=== PATIENT | female | born 1970 | race Caucasian/White ===

== ENCOUNTER → 2016-11-15 | Outpatient (CLI) | payer BC, MEDICAID, OTHER ==
[2016-11-15 21:06] LABS: MEAN CORPUSCULAR HEMOGLOBIN 30.5 pg (27.0-33.0); MEAN CORPUSCULAR HGB CONC 33.8 g/dl (32.0-36.5); MEAN CORPUSCULAR VOLUME 90.3 fl (80.0-96.0); WHITE BLOOD COUNT 6.9 K/mm3 (4.0-10.0)
[2016-11-15 21:07] LABS: BASO % 0.5 % (0.0-1.0); EOS # 0.1 K/mm3 (0.0-0.50); EOS % 1.8 % (0.0-3.0); LARGE UNSTAINED CELL # 0.2 K/mm3 (0.0-0.4); LARGE UNSTAINED CELL % 2.2 % (0.0-4.0); LYMPH # 1.7 K/mm3 (1.5-4.5); LYMPH % 24.1 % (24.0-44.0); MONO # 0.3 K/mm3 (0.0-0.8); MONO % 4.7 % (0.0-5.0); NEUTROPHILS # 4.6 K/mm3 (1.8-7.7); NEUTROPHILS % 66.6 % (36.0-66.0); PLATELET COUNT, AUTOMATED 304 k/mm3 (150-450); RED CELL DISTRIBUTION WIDTH 11.5 % (11.5-14.5)
[2016-11-15 21:12] LABS: ALBUMIN 3.8 GM/DL (3.2-5.2); ALBUMIN/GLOBULIN RATIO 1.41 (1.00-1.93); ALKALINE PHOSPHATASE 131 U/L (45-117); ALT/SGPT 50 U/L (12-78); ANION GAP 5 MEQ/L (8-16); AST/SGOT 29 U/L (15-37); BILIRUBIN,TOTAL 0.8 MG/DL (0.2-1.0); BLOOD UREA NITROGEN 12 MG/DL (7-18); CALCIUM LEVEL 8.9 MG/DL (8.5-10.1); CARBON DIOXIDE LEVEL 31 MEQ/L (21-32); CHLORIDE LEVEL 107 MEQ/L (98-107); FERRITIN 156 NG/ML (8-252); GLOMERULAR FILTRATION RATE > 60.0 (>58); GLUCOSE, FASTING 89 MG/DL (70-105); PERCENT SATURATION 40.9 % (13.2-37.4); PHOSPHORUS LEVEL 3.7 MG/DL (2.5-4.9); POTASSIUM SERUM 4.1 MEQ/L (3.5-5.1); SODIUM LEVEL 143 MEQ/L (136-145); TOTAL IRON BINDING CAPACITY 298 UG/DL (250-450); TOTAL PROTEIN 6.5 GM/DL (6.4-8.2)
[2016-11-15 21:19] LABS: VITAMIN B12 LEVEL 1471 PG/ML (247-911)
[2016-11-17 11:12] LABS: PRETREATED FOLATE FOR RBCFOL 9.6 NG/ML
== END ==
LOC: M LRY 16:22
PROVIDERS: ATTEND Surgery
DX: K91.2 Postsurgical malabsorption, not elsewhere classified (principal); Z98.84 Bariatric surgery status; E55.9 Vitamin D deficiency, unspecified

== ENCOUNTER → 2017-09-11 | Outpatient (CLI) | payer MEDICAID | LOC: M WHC 14:38 | DX: Z12.31 Encounter for screening mammogram for malignant neoplasm of breast (principal); Z80.41 Family history of malignant neoplasm of ovary | CPT/HCPCS: 77067 ==

== ENCOUNTER → 2017-11-20 | Outpatient (REF) | payer MEDICAID ==
[2017-11-22 14:19] LABS: HPV HYBRID CAPTURE II Negative (Negative)
== END ==
LOC: M SFHCWAGY 15:16
DX: Z12.4 Encounter for screening for malignant neoplasm of cervix (principal)

== ENCOUNTER → 2018-01-23 | Outpatient (REF) | payer OTHER, MEDICAID ==
[2018-01-23 20:51] LABS: HEMATOCRIT 41.8 % (36.0-47.0); HEMOGLOBIN 13.6 g/dl (12.0-15.5); MEAN CORPUSCULAR HEMOGLOBIN 30.3 pg (27.0-33.0); MEAN CORPUSCULAR HGB CONC 32.5 g/dl (32.0-36.5); MEAN CORPUSCULAR VOLUME 93.1 fl (80.0-96.0); PLATELET COUNT, AUTOMATED 272 10^3/uL (150-450); RED BLOOD COUNT 4.49 10^6/uL (4.00-5.40); RED CELL DISTRIBUTION WIDTH 12.5 % (11.5-14.5); WHITE BLOOD COUNT 5.8 10^3/uL (4.0-10.0)
[2018-01-23 21:15] LABS: ALBUMIN 3.7 GM/DL (3.2-5.2); ALBUMIN/GLOBULIN RATIO 1.23 (1.00-1.93); ALKALINE PHOSPHATASE 88 U/L (45-117); ALT/SGPT 34 U/L (12-78); ANION GAP 7 MEQ/L (8-16); AST/SGOT 19 U/L (7-37); BLOOD UREA NITROGEN 10 MG/DL (7-18); CALCIUM LEVEL 8.5 MG/DL (8.5-10.1); CARBON DIOXIDE LEVEL 30 MEQ/L (21-32); CHLORIDE LEVEL 107 MEQ/L (98-107); FERRITIN 68 NG/ML (8-252); GLOMERULAR FILTRATION RATE > 60.0 (>58); GLUCOSE, FASTING 76 MG/DL (70-100); IRON (FE) 121 UG/DL (50-170); POTASSIUM SERUM 4.5 MEQ/L (3.5-5.1); SODIUM LEVEL 144 MEQ/L (136-145); TOTAL PROTEIN 6.7 GM/DL (6.4-8.2)
[2018-01-23 21:19] LABS: TOTAL 25(OH) VITAMIN D 44.3 NG/ML (30.0-100.0); VITAMIN B12 LEVEL 1385 PG/ML (247-911)
== END ==
LOC: M SFHCLERA 16:42
DX: Z98.84 Bariatric surgery status (principal); E55.9 Vitamin D deficiency, unspecified

== ENCOUNTER 2018-02-11 07:46 | Emergency (ER) | payer OTHER ==
[2018-02-11] MEDS: methylPREDNISolone INJ 125 MG/2 ML VIAL (J2930) IV (08:36)
[2018-02-11] MEDS: AUGMENTIN 875 MG TAB PO (08:36)
[2018-02-11] MEDS: ONDANSETRON 4MG/2ML VIAL (J2405) IV (08:36)
[2018-02-11] MEDS: KETOROLAC 30 MG/ML VIAL (J1885) IV (08:36)
[2018-02-11] MEDS: NS 1,000 ML IV (08:41)
[2018-02-11 08:59] LABS: BASO % 0.5 % (0.0-1.0); EOS # 0.1 10^3/uL (0.0-0.50); EOS % 1.5 % (0.0-3.0); HEMATOCRIT 42.7 % (36.0-47.0); HEMOGLOBIN 14.3 g/dl (12.0-15.5); IMMATURE GRANULOCYTE % 0.2 % (0-3.0); LYMPH # 2.2 10^3/uL (1.5-4.5); LYMPH % 27.2 % (24.0-44.0); MEAN CORPUSCULAR HEMOGLOBIN 31.1 pg (27.0-33.0); MEAN CORPUSCULAR HGB CONC 33.5 g/dl (32.0-36.5); MEAN CORPUSCULAR VOLUME 92.8 fl (80.0-96.0); MONO # 0.7 10^3/uL (0.0-0.8); MONO % 8.8 % (0.0-5.0); NEUTROPHILS % 61.8 % (36.0-66.0); PLATELET COUNT, AUTOMATED 327 10^3/uL (150-450); RED CELL DISTRIBUTION WIDTH 12.2 % (11.5-14.5); WHITE BLOOD COUNT 8.1 10^3/uL (4.0-10.0)
[2018-02-11 10:08] LABS: ANION GAP 8 MEQ/L (8-16); BLOOD UREA NITROGEN 10 MG/DL (7-18); CALCIUM LEVEL 8.9 MG/DL (8.5-10.1); CARBON DIOXIDE LEVEL 30 MEQ/L (21-32); CHLORIDE LEVEL 107 MEQ/L (98-107); CREATININE FOR GFR 0.78 MG/DL (0.55-1.30); GLOMERULAR FILTRATION RATE > 60.0 (>58); GLUCOSE, FASTING 102 MG/DL (70-100); POTASSIUM SERUM 4.5 MEQ/L (3.5-5.1); SODIUM LEVEL 145 MEQ/L (136-145)
== END 2018-02-11 10:39 | disposition home or self-care (01) ==
LOC: M ED 07:46
DX: J32.9 Chronic sinusitis, unspecified (principal); Z98.84 Bariatric surgery status; Z87.891 Personal history of nicotine dependence; Z88.1 Allergy status to other antibiotic agents; Z79.899 Other long term (current) drug therapy
CPT/HCPCS: J2405

== ENCOUNTER → 2018-03-27 | Outpatient (REF) | payer OTHER | LOC: M SFHCPLAZ 08:34 | DX: Z13.220 Encounter for screening for lipoid disorders (principal) ==

== ENCOUNTER → 2018-10-09 | Outpatient (CLI) | payer OTHER ==
[~2018-10-09] MED LIST: APAP500T10 PO; AUGM875T28 PO; DIFL150T PO; HYDR-3715 PO; OMEP40CA2; PRED20TA PO; TYLE-45 PO
[2018-10-09 13:52] LABS: CHOLESTEROL LEVEL 172 MG/DL (<200); CHOLESTEROL RISK RATIO 2.422 (<5); HDL CHOLESTEROL 71 MG/DL (>40); IRON (FE) 124 UG/DL (50-170); LDL CHOLESTEROL 90 MG/DL (<100); NON-HDL-C 101 MG/DL; TOTAL 25(OH) VITAMIN D 40.2 NG/ML (30.0-100.0); TRIGLYCERIDES LEVEL 57 MG/DL (<150); VITAMIN B12 LEVEL 1872 PG/ML (247-911)
[2018-10-09 13:54] LABS: FOLATE > 24.0 NG/ML (>5.4)
[2018-10-12 14:09] LABS: VITAMIN B1 LEVEL WHOLE BLOOD 137.3 nmol/L (66.5-200.0)
== END ==
LOC: M LRY 10:30
PROVIDERS: ATTEND Family Medicine
DX: Z98.84 Bariatric surgery status (principal); Z86.19 Personal history of other infectious and parasitic diseases; E78.2 Mixed hyperlipidemia

== ENCOUNTER → 2018-10-13 | Outpatient (REF) | payer OTHER ==
[~2018-10-13] MED LIST changes: -HYDR-3715 PO; +NORCOTAB PO
== END ==
LOC: M LAB REF 10:03
PROVIDERS: ATTEND Family Medicine
DX: Z86.19 Personal history of other infectious and parasitic diseases (principal); E78.2 Mixed hyperlipidemia

== ENCOUNTER 2019-02-02 16:24 | Observation (INO) | payer OTHER ==
[~2019-02-02] VITALS: Ht 157.5 cm; Wt 77.6 kg
[~2019-02-02 16:24] MED LIST changes: +HYDR-3715 PO; -NORCOTAB PO
[2019-02-02 17:11] LABS: HEMATOCRIT 44.2 % (36.0-47.0); HEMOGLOBIN 14.9 g/dl (12.0-15.5); MEAN CORPUSCULAR HEMOGLOBIN 30.4 pg (27.0-33.0); MEAN CORPUSCULAR HGB CONC 33.7 g/dl (32.0-36.5); MEAN CORPUSCULAR VOLUME 90.2 fl (80.0-96.0); PLATELET COUNT, AUTOMATED 277 10^3/uL (150-450); WHITE BLOOD COUNT 10.3 10^3/uL (4.0-10.0)
[2019-02-02] MEDS ORDERED: METOCLOPRAMIDE INJ 10MG/2ML VIAL (J2765) IV ONE ×2 (17:15→21:45)
[2019-02-02] MEDS ORDERED: KETOROLAC 30 MG/ML VIAL (J1885) IV ONE (17:15)
[2019-02-02 17:48] LABS: AMYLASE 64 U/L (25-115)
[2019-02-02 17:49] LABS: LIPASE 204 U/L (73-393)
[2019-02-02 17:55] LABS: ALBUMIN 3.7 GM/DL (3.2-5.2); ALT/SGPT 75 U/L (12-78); BILIRUBIN,TOTAL 1.4 MG/DL (0.2-1.0); BLOOD UREA NITROGEN 16 MG/DL (7-18); CALCIUM LEVEL 8.7 MG/DL (8.5-10.1); CARBON DIOXIDE LEVEL 26 MEQ/L (21-32); CHLORIDE LEVEL 108 MEQ/L (98-107); CREATININE FOR GFR 0.77 MG/DL (0.55-1.30); GLOMERULAR FILTRATION RATE > 60.0 (>58); GLUCOSE, FASTING 157 MG/DL (70-100); POTASSIUM SERUM 4.2 MEQ/L (3.5-5.1); SODIUM LEVEL 140 MEQ/L (136-145); TOTAL PROTEIN 6.6 GM/DL (6.4-8.2)
[2019-02-02] MEDS: GASTROGRAFIN SOLUTION 30ML PO SCH ×2 (18:49→19:27)
[2019-02-02] MEDS ORDERED: ISOVUE-370 76% 100ML VIAL (Q9967) As Ordered ONE (20:07)
--- NOTE | 2019-02-02 20:41 | REP ---
Clinical: Generalized abdominal pain. Technique: Axial contrast enhanced images from the lung bases to the pubic symphysis using oral (per protocol) and 100 ml Isovue 370 intravenous contrast material with coronal and sagittal re-formations. Findings: There is evidence for a small bowel intussusception in the left mid abdomen (images [id number]). There is no associated bowel obstruction although findings may be related to patient's symptoms of generalized abdominal pain. There is evidence for gastric bypass surgery as well as mild fecal stasis and scattered sigmoid diverticula without obvious acute diverticulitis. No free air. No ascites or drainable collection/abscess. Liver, spleen, pancreas, bilateral adrenal glands and kidneys are normal. Evidence of prior cholecystectomy noted. Small splenule at the splenic hilum noted. Pelvis demonstrates normal bladder and age-appropriate uterus/adnexa. No pelvic fluid. No adenopathy. Abdominal aorta without aneurysm or dissection. Musculoskeletal structures are intact. Lung bases are clear. Impression: 1. Small bowel intussusception in the left mid abdomen possibly related to patient's symptoms. No associated bowel obstruction, free air, or ascites. 2. Few scattered sigmoid diverticula without acute diverticulitis. 3. Mild fecal stasis. Electronically Signed by Kane Romeo MD 02/02/2019 08:31 P
[2019-02-02] MEDS ORDERED: NS 1,000 ML IV ONE (21:45)
[2019-02-02] MEDS ORDERED: MORPHINE 2 MG/ML 1ML SYRINGE (J2270) IV ONE (21:45)
[2019-02-02] MEDS ORDERED: OMEP-218 PO (21:55)
[2019-02-02] MEDS ORDERED: VITA200028 PO (22:01)
[2019-02-02] MEDS ORDERED: FLUO10TA30 PO (22:01)
[2019-02-02] MEDS ORDERED: ADDE20CA3 PO (22:01)
[2019-02-02] MEDS ORDERED: CHILCHW19 PO (22:01)
[2019-02-02] MEDS ORDERED: APAP325T4 PO (22:01)
[2019-02-02] MEDS ORDERED: VITA500C19 PO (22:01)
[2019-02-02] MEDS ORDERED: CALC500C16 PO (22:01)
[2019-02-02] MEDS ORDERED: ONDANSETRON 4MG/2ML VIAL (J2405) IV PRN (22:45)
[2019-02-02] MEDS ORDERED: NORCO, ANEXSIA 5/325MG TABLET (HYDROcodone/ACETAMINOPHEN) PO PRN (22:45)
[2019-02-02] MEDS ORDERED: KETOROLAC 30 MG/ML VIAL (J1885) IV PRN (22:45)
[2019-02-02] MEDS ORDERED: MORPHINE 4 MG/ML 1ML VIAL/SYRINGE (J2270) IV PRN (22:45)
--- NOTE | 2019-02-02 22:55 | HPEPDOC ---
General Surgery H&P Date of Admission Feb 02, 2019 Attending Physician: HANS WILLS MD History and Physical CHIEF COMPLAINT: Abdominal pain HISTORY OF PRESENT ILLNESS: Patient presented herself to the emergency room roughly about 4 in the afternoon complaining of sudden onset of generalized abdominal pain that started at about 2 PM. She reports she was in her usual state of health, was at a republican when she had sudden onset of severe crampy generalized abdominal pain that seems to be centering on the left side of her mid abdomen. This causes her to double over. She felt nauseated but not enough to be vomiting. She denies any associated diarrhea. No other people in the republican got sick. She reports 2 or 3 prior episodes of similar symptoms but this usually comes and goes and has not been prior seen by any provider as it mostly resolved itself. She had a gastric bypass in 2013. She reports that her doctor found an ulcer during the surgery which was fixed. She has lost about 100 pounds since his surgery. She had cholecystectomy year after. In the emergency room she was given pain medications. The time that I saw she reports the pain is better about 4 out of 10 in intensity. It was 10 out of 10 on presentation. ALLERGIES: Please see below. HOME MEDICATIONS: Please see below. PAST MEDICAL HISTORY: 1. Gastric esophageal reflux 2. Anxiety 3. Chronic hip pain 4. Vitamin deficiency. PAST SURGICAL HISTORY: 1. Gastric bypass 2013 2. Cholecystectomy 2014 3. Appendectomy. 4. Bladder sling surgery PERSONAL/SOCIAL HISTORY: Previous smoker. REVIEW OF SYSTEMS: GENERAL: Patient was in her usual state of health prior to episode of symptoms today. HEENT: Denies blurred vision and double vision. Denies ear symptoms. Denies hoarseness. NECK: Denies any neck pain. CARDIOVASCULAR: Denies chest pain and palpitations. MUSCULOSKELETAL: Reports chronic hip pain, not on any chronic narcotics. SKIN: Denies rash. NEUROLOGIC: Denies headache, stroke and transient ischemic attack. PSYCHIATRIC: Reports history of anxiety, taking the medications for it. ENDOCRINE: Denies thyroid disease. HEMATOLOGY/ONCOLOGY: Denies any bleeding or clotting disorder. HEART: Denies any chest pains, palpitations, paroxysmal dyspnea, orthopnea. PULMONARY: Denies chronic cough, dyspnea and wheezing. GASTROINTESTINAL: Has history of gastric bypass in 2013. GENITOURINARY: Denies dysuria, frequency, hematuria and nocturia. ENDOCRINE: Denies polydipsia, polyphagia, polyuria, heat or cold intolerance. INFECTIOUS: Denies any recent upper respiratory tract infection, UTI, need for use of antibiotics. NUTRITION: Reports good appetite. PHYSICAL EXAMINATION: VITAL SIGNS: Please see below. GENERAL APPEARANCE: Patient seen in the emergency room laying on the stretcher appears relatively comfortable as I saw her. Awake, alert, oriented. HEENT: Normocephalic, atraumatic. [place] palpebral conjunctivae. Anicteric sclerae. Lips dry. CHEST: No chest wall abnormalities. Normal respiratory motion/effort. NECK: Supple. No thyromegaly. No lymphadenopathies. LUNGS: Lung sounds are clear to auscultation bilaterally. No wheezing appreciated. HEART: No chest wall abnormalities. Heart rate and rhythm are regular with no m urmurs. ABDOMEN: Abdomen is mildly obese, soft, nondistended. No distinct area of tenderness on palpation, minimal discomfort on deep palpation over the left of the umbilicus without any rebound or guarding. She has a McBurney incision is healed. Several laparoscopic port sites on the upper abdomen from gastric bypass as well as from the cholecystectomy also appears healed. No incisional or umbi lical hernias. SKIN: Warm, moist. EXTREMITIES: Extremities have no deformities. No edema identified. NEUROLOGICAL: Awake, alert, oriented. ANCILLARIES: . LABORATORY DATA: Please see below. MICROBIOLOGY: Please see below. IMAGING: CT scan abdomen and pelvis with by mouth and IV contrast 1. Small bowel intussusception in the left mid abdomen possibly related to patient's symptoms. No associated bowel obstruction, free air, or ascites. 2. Few scattered sigmoid diverticula without acute diverticulitis. 3. Mild fecal stasis. IMPRESSION AND PLAN: Small bowel intussusception without signs of obstruction or bowel ischemia Gastric bypass status At the time that I saw her she looks quite comfortable. She tells me her level of pain at the time of presentation was 10 out of 10 currently about 4 out of 10. Her abdominal exam is benign and she does not have any tenderness on examination of her abdominal distention. I will keep her overnight for continued observation and arrange for small bowel follow-through tomorrow morning to document resolution of the intussusception and/or try to find possible reason for the intussusception. She does have a history of prior gastric bypass in 2013 and the jejuno-jejunostomy anastomosis sometimes is prone to intussusception likewise if she has some internal hernia this may cause obstruction or intussusception. I reviewed her records available in [facility] and 1 primary care records do rituximab her having gastric sleeve surgery instead of gastric bypass. Patient reports to me that she did have gastric bypass surgery. Vital Signs Vital Signs Date Time Temp Pulse Resp B/P (MAP) Pulse Ox O2 Delivery O2 Flow Rate FiO2 02/02/19 22:37 16 02/02/19 21:59 100.6 86 109/70 (83) 98 Room Air Laboratory Data Labs 24H Laboratory Tests 2 02/02/19 16:58: Nucleated Red Blood Cells % (auto) 0.0, Urine Color YELLOW, Urine Appearance CLOUDYH, Urine pH 9.0, Urine Specific [place] 1.020, Urine Protein NEGATIVE, Urine Glucose (UA) NEGATIVE, Urine Ketones 1+H, Urine Blood NEGATIVE, Urine Nitrite NEGATIVE, Urine Bilirubin NEGATIVE, Urine Urobilinogen 0.2, Urine Leukocyte Esterase NEGATIVE, Urine WBC (Auto) 2, Urine RBC (Auto) 2, Urine Hya line Casts (Auto) 0, Urine Bacteria (Auto) NEGATIVE, Urine Squamous Epithelial Cells 1, Urine Amorphous Sediment SMALLH, Urine Sperm (Auto) , Anion Gap 6L, Glomerular Filtration Rate > 60.0, Blood Urea Nitrogen 16, Creatinine 0.77, Sodium Level 140, Potassium Level 4.2, Chloride Level 108H, Carbon Dioxide Level 26, Calcium Level 8.7, Aspartate Amino Transf (AST/SGOT) 132H, Alanine Aminotransferase (ALT/SGPT) 75, Alkaline Phosphatase 93, Total Bilirubin 1.4H, Total Protein 6.6, Albumin 3.7, Albumin/Globulin Ratio 1.28, Amylase Level 64, Lipase 204 CBC/BMP Laboratory Tests 02/02/19 16:58 Red Blood Count 4.90, Mean Corpuscular Volume 90.2, Mean Corpuscular Hemoglobin 30.4, Mean Corpuscular Hemoglobin Concent 33.7, Red Cell Distribution Width 11.9, Calcium Level 8.7, Aspartate Amino Transf (AST/SGOT) 132 H, Alanine Aminotransferase (ALT/SGPT) 75, Alkaline Phosphatase 93, Total Bilirubin 1.4 H, Total Protein 6.6, Albumin 3.7 Home Medications Scheduled Ascorbic Acid (Vitamin C) 500 Mg Capsule.er, 500 MG PO DAILY, (Reported) Calcium Carbonate (Calcium) 500 Mg Tab.chew, 500 MG PO DAILY, (Reported) Dextroamphetamine/Amphetamine (Adderall Xr 20 mg Capsule) 20 Mg Cap.er.24h, 20 MG PO DAILY, (Reported) Ergocalciferol (Vitamin D2) (Vitamin D2) 2,000 Unit Tablet, 2,000 UNIT PO DAILY, (Reported) Fluoxetine HCl (Fluoxetine HCl) 10 Mg Tablet, 10 MG PO DAILY, (Reported) Multivitamin (Children's Chewable Vitamin) 1 Each Tab.chew, 2 EACH PO DAILY, (Reported) Omeprazole (Omeprazole) 20 Mg Capsule.dr, 20 MG PO DAILY, (Reported) Scheduled PRN Acetaminophen (Acetaminophen) 325 Mg Tablet, 650 MG PO q4-6h PRN for PAIN, (Reported) Allergies Coded Allergies: erythromycin base (Verified Allergy, Unknown, Vomits/Hives, 02/02/19) A-FIB/CHADSVASC A-FIB History Current/History of A-Fib/PAF?: No Current PO Anticoag Therapy: No HANS WILLS MD Feb 02, 2019 22:55
[2019-02-02] MEDS ORDERED: NORCO, ANEXSIA 5/325MG TABLET (HYDROcodone/ACETAMINOPHEN) PO ONE (23:15)
[2019-02-02] MEDS: LR 1,000 ML IV SCH (23:59)
[2019-02-03] VITALS: BP 94/51
[2019-02-03 04:00] VITALS: BP 93/51
[2019-02-03 07:44] LABS: BASO % 0.6 % (0.0-1.0); EOS % 0.4 % (0.0-3.0); HEMATOCRIT 39.4 % (36.0-47.0); HEMOGLOBIN 13.5 g/dl (12.0-15.5); LYMPH # 0.5 10^3/uL (1.5-4.5); LYMPH % 10.9 % (24.0-44.0); MEAN CORPUSCULAR HEMOGLOBIN 31.8 pg (27.0-33.0); MEAN CORPUSCULAR HGB CONC 34.3 g/dl (32.0-36.5); MEAN CORPUSCULAR VOLUME 92.7 fl (80.0-96.0); MONO # 0.5 10^3/uL (0.0-0.8); MONO % 11.4 % (0.0-5.0); NEUTROPHILS # 3.6 10^3/uL (1.8-7.7); NEUTROPHILS % 76.5 % (36.0-66.0); PLATELET COUNT, AUTOMATED 220 10^3/uL (150-450); RED BLOOD COUNT 4.25 10^6/uL (4.00-5.40); WHITE BLOOD COUNT 4.8 10^3/uL (4.0-10.0)
[2019-02-03 08:15] LABS: ALBUMIN 2.9 GM/DL (3.2-5.2); ALT/SGPT 471 U/L (12-78); BILIRUBIN,DIRECT 1.3 MG/DL (0.0-0.2); BILIRUBIN,TOTAL 2.1 MG/DL (0.2-1.0); BLOOD UREA NITROGEN 11 MG/DL (7-18); CARBON DIOXIDE LEVEL 29 MEQ/L (21-32); CHLORIDE LEVEL 108 MEQ/L (98-107); GLOMERULAR FILTRATION RATE > 60.0 (>58); GLUCOSE, FASTING 89 MG/DL (70-100); POTASSIUM SERUM 3.5 MEQ/L (3.5-5.1); SODIUM LEVEL 140 MEQ/L (136-145); TOTAL PROTEIN 5.5 GM/DL (6.4-8.2)
[2019-02-03 08:45] VITALS: BP 97/62
[2019-02-03] MEDS: PANTOPRAZOLE 40MG INJ (PROTONIX) (C9113) IV SCH (08:45)
[2019-02-03] MEDS: LR 1,000 ML IV SCH ×2 (09:30→20:06)
--- NOTE | 2019-02-03 14:46 | REP ---
MRCP: MRCP exam is accomplished utilizing multiple heavily T2-weighted sequences in the axial and coronal planes, with MIP reconstruction images performed. Correlation made with CT 02/02/2019. The patient has had a prior cholecystectomy. The common bile duct has a maximum diameter of 7 mm which is normal in caliber. There is no evidence of choledocholithiasis. The pancreatic duct is normal in caliber. There is no intrahepatic biliary dilatation. No ascites is seen. There is no evidence of periaortic adenopathy. Visualized liver, spleen, adrenals, pancreas, and kidneys are otherwise unremarkable. The previously noted small bowel intussusception in the left mid abdomen is not definitely visualized on today's exam. IMPRESSION: No significant biliary dilatation. No evidence of choledocholithiasis. Patient has had a prior cholecystectomy. No free fluid. The previously noted small bowel intussusception seen on the CT of 02/02/2019 is not visualized on this exam. Electronically Signed by Kareem Polk MD 02/03/2019 04:26 P
[2019-02-03] MEDS: SENOKOT S TAB PO SCH ×2 (15:22→20:14)
[2019-02-03] MEDS: ENOXAPARIN 40 MG/0.4 ML SYRINGE (J1650) SC SCH (15:24)
[2019-02-03 16:00] VITALS: BP_SYST 116; BP_SYST 97; BP_DIAS 62
[2019-02-03 20:00] VITALS: BP 122/78
[2019-02-03 23:57] VITALS: BP 118/67
[2019-02-04] MEDS: LR 1,000 ML IV SCH (05:15)
[2019-02-04 06:54] LABS: ALBUMIN 2.8 GM/DL (3.2-5.2); ALT/SGPT 294 U/L (12-78); BILIRUBIN,DIRECT 0.3 MG/DL (0.0-0.2); BILIRUBIN,TOTAL 0.7 MG/DL (0.2-1.0); BLOOD UREA NITROGEN 5 MG/DL (7-18); CALCIUM LEVEL 7.7 MG/DL (8.5-10.1); CARBON DIOXIDE LEVEL 26 MEQ/L (21-32); CHLORIDE LEVEL 111 MEQ/L (98-107); GLOMERULAR FILTRATION RATE > 60.0 (>58); GLUCOSE, FASTING 80 MG/DL (70-100); POTASSIUM SERUM 3.8 MEQ/L (3.5-5.1); SODIUM LEVEL 143 MEQ/L (136-145); TOTAL PROTEIN 5.4 GM/DL (6.4-8.2)
[2019-02-04 08:00] VITALS: BP 114/70
[2019-02-04] MEDS: ENOXAPARIN 40 MG/0.4 ML SYRINGE (J1650) SC SCH (08:10)
[2019-02-04] MEDS: PANTOPRAZOLE 40MG INJ (PROTONIX) (C9113) IV SCH (08:10)
[2019-02-04] MEDS ORDERED: E-Z-PAQUE 96% w/w SUSP 176GM BTL As Ordered ONE (08:26)
[2019-02-04] MEDS ORDERED: E-Z-HD 98% w/w 340GM SUSP BTL As Ordered ONE (08:26)
[2019-02-04] MEDS: SENOKOT S TAB PO SCH (08:26)
[2019-02-04] MEDS ORDERED: E-Z-GAS II EFFERVESCENT PACKET (SODIUM BICARB./CITRIC ACID/SIMETHICONE) As Ordered ONE (08:26)
--- NOTE | 2019-02-04 10:33 | IPNPDOC ---
Subjective General Date/Time Seen The patient was seen on 02/04/19 at 10:31. Subject Chief Complaint/History The patient is a 48-year-old female admitted with a reason for visit of Intussusception Of Small Bowel. Reports no further abdominal discomfort, hungry. She denies any further nausea. She is tolerating regular food. Current Medications Current Medications Current Medications Acetaminophen/ Hydrocodone Bitart ([place], Anexsia 5/325) 1 tab Q4HP PRN PO MODE RATE PAIN (PS 5-7) Last administered on 02/03/19at 13:52; Start 02/02/19 at 22:45 Diatrizoate Meglum/ Diatrizoate Sod (Gastrografin) 10 ml Q30M PO Last administered on 02/02/19at 19:27; Start 02/02/19 at 19:00; Stop 02/02/19 at 19:31; Status DC Enoxaparin Sodium (Lovenox) 40 mg DAILY SC Last administered on 02/04/19at 08:10; Start 02/03/19 at 09:00 Home Med (Med Rec Complete!) ASDIRECTED XX ; Start 02/02/19 at 22:15; Stop 02/02/19 at 22:15; Status DC Ketorolac Tromethamine (ToRADol) 15 mg Q6HP PRN IV MILD/MODERATE PAIN (PS 1-7); Start 02/02/19 at 22:45; Stop 02/07/19 at 22:44 Lactated Ringer's 1,000 ml @ 100 mls/hr Q10H IV Last administered on 02/04/19at 05:15; Start 02/02/19 at 22:37 Morphine Sulfate (Morphine Sulfate Inj) 2 mg Q2HP PRN IV SEVERE PAIN (PS 8-10); Start 02/02/19 at 22:45 Ondansetron HCl (ZOFRAN INJection) 4 mg Q6HP PRN IV NAUSEA OR VOMITING; Start 02/02/19 at 22:45 Pantoprazole Sodium (Protonix) 40 mg DAILY IV Last administered on 02/04/19at 08:10; Start 02/03/19 at 09:00 Senna/Docusate Sodium (Senokot S) 1 tab BID PO Last administered on 02/03/19at 20:14; Start 02/03/19 at 09:00 Allergies Coded Allergies: erythromycin base (Verified Allergy, Unknown, Vomits/Hives, 02/02/19) Objective Physical Examination Examination GENERAL APPEARANCE:comfortable. SKIN: Warm and moist. HEENT: Normocephalic, atraumatic. [place] palpebral conjunctiva, anicteric sclerae. Lips and mucosa appear moist. NECK: Supple, no thyromegaly. No obvious jugular venous distention. LUNGS: Clear to auscultation bilaterally. No wheezing appreciated. HEART: No chest wall abnormalities. Regular rate and rhythm with no murmurs appreciated. ABDOMEN: Abdomen is round, soft, nondistended. nontender to palpation. EXTREMITIES: no edema. Vital Signs Vital Signs Date Time Temp Pulse Resp B/P (MAP) Pulse Ox O2 Delivery O2 Flow Rate FiO2 02/04/19 08:00 99.0 75 14 114/70 (85) 99 02/02/19 23:40 Room Air I&Os I&O- Last 24 Hours up to 6 AM 02/04/19 06:00 Intake Total 2020 ml Output Total 1650 ml Balance 370 ml Laboratory Data Labs 24H Laboratory Tests 2 02/04/19 06:09: Anion Gap 6L, Glomerular Filtration Rate > 60.0, Blood Urea Nitrogen 5#L, Creatinine 0.60, Sodium Level 143, Potassium Level 3.8, Chloride Level 111H, Carbon Dioxide Level 26, Calcium Level 7.7L, Aspartate Amino Transf (AST/SGOT) 145H, Alanine Aminotransferase (ALT/SGPT) 294H, Alkaline Phosphatase 158H, Total Bilirubin 0.7#, Direct Bilirubin 0.3H, Total Protein 5.4L, Albumin 2.8L, Albumin/Globulin Ratio 1.08 CBC/BMP Laboratory Tests 02/04/19 06:09 Calcium Level 7.7 L, Aspartate Amino Transf (AST/SGOT) 145 H, Alanine Aminotransferase (ALT/SGPT) 294 H, Alkaline Phosphatase 158 H, Total Bilirubin 0.7 #, Direct Bilirubin 0.3 H, Total Protein 5.4 L, Albumin 2.8 L Impression abdominal pain small bowel intussusception without small bowel obstruction gastric bypass status post cholecystectomy status transient elevation of LFTs I suspect is from transient CBD stone passage OK to go home Plan / VTE VTE Prophylaxis Ordered?: Yes HANS WILLS MD Feb 04, 2019 10:32
--- NOTE | 2019-02-04 16:44 | REP ---
Upper GI Air Contrast with SBFT The procedure was performed by SAEID Morales, under the the direct supervision of Dr. Romeo. The images were reviewed with Dr. Romeo. The frame hand film shows no organomegaly or pathological masses. The intestinal gas pattern appears normal. There are surgical ronny in the right upper quadrant. Liquid barium and gas producing crystals were given in the erect position as well as liquid barium in the prone position in order to perform a double contrast upper GI examination. The oral and pharyngeal stages of deglutition were unremarkable. Esophageal transport is efficient and there is no esophagitis, stricture, or mucosal ring noted. There is no hiatal hernia. Gastroesophageal reflux was not appreciated throughout the course of the exam. The patient is status post Veronique-en-[id number]. Contrast flows freely into the gastric pouch, and into the small bowel. The visualized portion of the proximal small bowel appears normal in course and caliber. The barium column was followed through the small bowel to the level of the terminal ileum. Small bowel transit time was approximately 40 minutes. During fluoroscopy gentle palpation shows all loops are freely mobile and pliable. There are no fixed or angulated loops. The small bowel mucosal pattern is normal in course and caliber. There is no transition to set suggest a partial small-bowel obstruction. Spot filming of the terminal ileum shows it to be unremarkable. Impression: 1. Unremarkable upper GI and small-bowel follow-through. 0.7 minutes of fluoroscopy time was utilized for this procedure. Some fluoroscopic images are performed with last image hold technology. These images require no additional radiation. Reviewed by SAEID Verdugo 02/04/2019 03:56 P Electronically Signed by Kane Romeo MD 02/04/2019 04:35 P
== END 2019-02-04 11:15 | disposition home or self-care (01) ==
LOC: M ED 16:24 → M ED INP 22:37 → M PED 23:45
PROVIDERS: ADMIT Surgery; ATTEND Surgery
DX: K56.1 Intussusception (principal); R10.84 Generalized abdominal pain; R79.89 Other specified abnormal findings of blood chemistry; K21.9 Gastro-esophageal reflux disease without esophagitis; F41.9 Anxiety disorder, unspecified; M25.559 Pain in unspecified hip; E56.9 Vitamin deficiency, unspecified; Z87.891 Personal history of nicotine dependence; Z98.84 Bariatric surgery status; Z90.49 Acquired absence of other specified parts of digestive tract; Z88.1 Allergy status to other antibiotic agents; Z79.899 Other long term (current) drug therapy
CPT/HCPCS: 36415; 74177; 74181; 74245; 80053; 81001; 82150; 82248; 83690; 85025; 85027; 96361; 96372; 96374; 96375; 96376; 99284; C9113; J1650; J1885; J2270; J2765; Q9963; Q9967

== ENCOUNTER → 2019-06-25 | Outpatient (CLI) | payer OTHER ==
[~2019-06-25] MED LIST changes: +ADDE20CA3 PO; +APAP325T4 PO; +CALC500C16 PO; +CHILCHW19 PO; +FLUO10TA30 PO; +OMEP-218 PO; -OMEP40CA2; +OMEP40CA97; +VITA200028 PO; +VITA500C19 PO
--- NOTE | 2019-06-25 14:03 | REP ---
Four views left elbow: 06/25/2019. Indication: Left elbow pain. Comparison: None. Findings: There is no acute fracture, subluxation or dislocation. No significant osteoarthritic sequelae are present. No lytic or blastic lesions are present. Impression: No acute osseous injury of the left elbow. Electronically Signed by George Chu DO 06/25/2019 01:54 P
--- NOTE | 2019-06-25 14:41 | REP ---
Two views left hip: 06/25/2019. Indication: Left hip pain. Comparison: 12/05/2013. Findings: There is no acute fracture, subluxation or dislocation. Osteoarthritic sequelae of the superior acetabulum are noted including sclerosis and irregularity. There is minimal narrowing of the joint space. No lytic or blastic lesions are present. Impression: Moderate osteoarthritic sequelae of the left hip. Electronically Signed by George Chu DO 06/25/2019 02:31 P
== END ==
LOC: M RAD 11:53
PROVIDERS: ATTEND Family Medicine
DX: M16.12 Unilateral primary osteoarthritis, left hip (principal)

== ENCOUNTER → 2019-08-08 | Outpatient (CLI) | payer OTHER ==
--- NOTE | 2019-08-09 15:21 | ECHO ---
DATE OF PROCEDURE: 08/08/2019 REFERRING PHYSICIAN: Dr. Heri Allen REASON FOR STUDY: Edema. 2D MEASUREMENTS: IVS - 0.9 cm LV - 4.5 cm LVPW - 0.8 cm LA - 3.5 cm Aorta - 2.9 cm IVC - 2.3 DOPPLER MEASUREMENTS: Peak velocity across the aortic valve - 1.1 meter per second Peak velocity across the LVOT 0.94 meters per second Mitral E - 0.81, Mitral A - 0.71 with a ratio of 1.1 Maximum tricuspid velocity 2.1 meters per second 2D COMMENTS: 1. Normal left ventricular size, wall thickness, and normal global left ventricular systolic function. The estimated ventricular systolic ejection fraction is 60-65%. 2. Normal left atrium. Normal right atrium and right ventricle. 3. The atrial septum appeared to be normal without evidence of defect or shunt. 4. Normal aortic root. 5. No pericardial effusion seen. 6. The aortic valve, mitral valve, tricuspid valve and pulmonic valve appeared to be normal. The proximal pulmonary artery branches were not well visualized. 7. The inferior vena cava was mildly enlarged, central venous pressure might be elevated. Doppler detects trace mitral regurgitation and trace to mild tricuspid regurgitation. The calculated pulmonary artery systolic pressure was normal. Assessment of the left ventricular diastolic function appeared to be normal. IMPRESSION: 1. Normal global left ventricular systolic and diastolic function. 2. Trace mitral regurgitation. 3. Trace to mild tricuspid regurgitation with a normal calculated pulmonary artery systolic pressure. 4. There are findings consistent with elevated central venous pressure, the inferior vena cava was mildly enlarged. 5. Global longitudinal strain/GLS was normal at 18%.
== END ==
LOC: M CARPUL 08:24
PROVIDERS: ATTEND Family Medicine
DX: M79.89 Other specified soft tissue disorders (principal)

== ENCOUNTER → 2020-04-01 | Outpatient (CLI) | payer OTHER ==
[2020-04-01 18:40] LABS: CHOLESTEROL LEVEL 192 MG/DL (<200); CHOLESTEROL RISK RATIO 2.909 (<5); HDL CHOLESTEROL 66 MG/DL (>40); IRON (FE) 89 UG/DL (50-170); LDL CHOLESTEROL 87 MG/DL (<100); NON-HDL-C 126 MG/DL; TRIGLYCERIDES LEVEL 196 MG/DL (<150)
[2020-04-01 18:58] LABS: HEMOGLOBIN A1c 5.4 %
[2020-04-01 19:00] LABS: APPEARANCE, URINE CLEAR (CLEAR); BACTERIA, URINE AUTO NEGATIVE (NEGATIVE); BILIRUBIN, URINE AUTO NEGATIVE (NEGATIVE); BLOOD, URINE BLOOD NEGATIVE (NEGATIVE); COLOR, URINE YELLOW (YELLOW); GLUCOSE, URINE (UA) AUTO NEGATIVE (NEGATIVE); KETONE, URINE AUTO TRACE mg/dL (NEGATIVE); LEUKOCYTE ESTERASE, URINE AUTO NEGATIVE (NEGATIVE); MUCUS, URINE SMALL (NEGATIVE); NITRITE, URINE AUTO NEGATIVE (NEGATIVE); PROTEIN, URINE AUTO NEGATIVE (NEGATIVE); RBC, URINE AUTO 0 /HPF (0-3); SPECIFIC GRAVITY URINE AUTO 1.026 (1.002-1.035); SQUAMOUS EPITHELIAL CELL UR AU 1 /HPF (0-6); UROBILINOGEN, URINE AUTO 0.2 mg/dL (0.0-2.0); WBC, URINE AUTO 2 /HPF (0-3)
[2020-04-02 11:00] LABS: FOLATE > 24.0 NG/ML (>5.4); TOTAL 25(OH) VITAMIN D 35.2 NG/ML (30.0-100.0); VITAMIN B12 LEVEL 1097 PG/ML (247-911)
[2020-04-07 06:08] LABS: VITAMIN B1 LEVEL WHOLE BLOOD 213.4 nmol/L (66.5-200.0)
== END ==
LOC: M PLALAB 15:46
PROVIDERS: ATTEND Family Medicine
DX: Z98.84 Bariatric surgery status (principal); Z13.1 Encounter for screening for diabetes mellitus; Z13.220 Encounter for screening for lipoid disorders

== ENCOUNTER → 2020-04-01 | Outpatient (REF) | payer OTHER | LOC: M WHC 13:00 | PROVIDERS: ATTEND Nurse Practitioner Women's Health | DX: Z12.4 Encounter for screening for malignant neoplasm of cervix (principal) ==

== ENCOUNTER → 2021-03-16 | Outpatient (CLI) | payer OTHER ==
[~2021-03-16] MED LIST changes: +OMEP40CA4; -OMEP40CA97
--- NOTE | 2021-03-16 08:31 | REP ---
INDICATION: UNILATERAL PRIMARY OSTEOARTHRITIS, LEFT HIP. COMPARISON: Comparison radiographs of the left hip are from June 25, 2019.. TECHNIQUE: AP and frogleg views are provided. FINDINGS: There is subcortical cyst formation in the superior aspect of the acetabulum and mild acetabular spurring is seen. Femoral head is smooth and rounded. Hip joint space is preserved. Periarticular soft tissues are unremarkable. The findings are unchanged with regard to the hip. There is degenerative sclerosis and subcortical cyst formation at the symphysis pubis which is also unchanged. There are phleboliths in the left pelvis. The there are new calcific densities visible in the left pelvis as well located above the level of the phleboliths. These are of uncertain significance. These calcifications occupy an area roughly 4.5 cm in greatest diameter. IMPRESSION: Osteoarthritic changes in the left hip and symphysis pubis unchanged from prior study. New 4.5 cm area of calcification in the left pelvis question calcified mass. Consider pelvic sonography and or CT scanning. <Electronically signed by Ankit Carmen > 03/16/21 [id number]
== END ==
LOC: M PLAIMG 08:05
PROVIDERS: ATTEND Family Medicine
DX: M16.12 Unilateral primary osteoarthritis, left hip (principal)

== ENCOUNTER 2021-04-01 07:35 | Outpatient (RCR) | payer OTHER | END 2021-04-05 | disposition home or self-care (01) | LOC: M PT 07:35 | PROVIDERS: ATTEND Orthopaedic Surgery Adult Reconstructive Orthopaedic Surgery | DX: M25.552 Pain in left hip (principal) ==

== ENCOUNTER 2021-04-06 13:27 | Outpatient (RCR) | payer OTHER | END 2021-05-05 | LOC: M PT 13:27 | DX: M25.552 Pain in left hip (principal) ==

== ENCOUNTER → 2021-04-14 | Outpatient (REF) | payer OTHER | LOC: M SFHCWAGY 13:20 | PROVIDERS: ATTEND Nurse Practitioner Women's Health | DX: Z12.4 Encounter for screening for malignant neoplasm of cervix (principal); Z01.419 Encounter for gynecological examination (general) (routine) without abnormal findings ==

== ENCOUNTER → 2021-05-04 | Outpatient (REF) | payer OTHER | LOC: M LAB REF 21:48 | PROVIDERS: ATTEND Physician Assistant | DX: R05 Cough (principal) ==

== ENCOUNTER → 2021-09-07 | Outpatient (CLI) | payer OTHER ==
[~2021-09-07] MED LIST changes: +OMEP-173 PO; -OMEP-218 PO
== END ==
LOC: M RAD 12:46
PROVIDERS: ATTEND Family Medicine
DX: Z12.2 Encounter for screening for malignant neoplasm of respiratory organs (principal)

== ENCOUNTER → 2021-10-11 | Outpatient (CLI) | payer OTHER | LOC: M PLAIMG 09:21 | PROVIDERS: ATTEND Family Medicine | DX: M54.50 Low back pain, unspecified (principal) ==

== ENCOUNTER → 2021-11-28 | Outpatient (REF) | payer OTHER | LOC: M SFHCPLAZ 14:45 | PROVIDERS: ATTEND Family Medicine | DX: Z98.84 Bariatric surgery status (principal); R74.01 Elevation of levels of liver transaminase levels; Z13.220 Encounter for screening for lipoid disorders; Z13.1 Encounter for screening for diabetes mellitus; Z53.9 Procedure and treatment not carried out, unspecified reason ==

== ENCOUNTER → 2022-07-26 | Outpatient (CLI) | payer OTHER ==
[2022-07-26 13:51] LABS: HEMATOCRIT 44.9 % (36.0-47.0); HEMOGLOBIN 14.4 g/dl (12.0-15.5); MEAN CORPUSCULAR HEMOGLOBIN 29.9 pg (27.0-33.0); MEAN CORPUSCULAR HGB CONC 32.1 g/dl (32.0-36.5); MEAN CORPUSCULAR VOLUME 93.3 fl (80.0-96.0); PLATELET COUNT, AUTOMATED 281 10^3/uL (150-450); RED BLOOD COUNT 4.81 10^6/uL (4.00-5.40); WHITE BLOOD COUNT 7.5 10^3/uL (4.0-10.0)
[2022-07-26 14:13] LABS: ALBUMIN 3.5 G/DL (3.2-5.2); BILIRUBIN,DIRECT 0.2 MG/DL (<0.4); BILIRUBIN,TOTAL 0.8 MG/DL (0.3-1.2); CHOLESTEROL RISK RATIO 3.48 (<5); HDL CHOLESTEROL 55.6 MG/DL (>40); TOTAL PROTEIN 6.2 G/DL (5.7-8.2)
[2022-07-26 14:17] LABS: TOTAL 25(OH) VITAMIN D 41.9 NG/ML (20.0-100.0)
[2022-07-26 14:21] LABS: HEMOGLOBIN A1c 5.5 % (4.0-6.0)
== END ==
LOC: M PLALAB 09:11
PROVIDERS: ATTEND Student in an Organized Health Care Education/Training Program
DX: Z13.220 Encounter for screening for lipoid disorders (principal)

== ENCOUNTER → 2023-09-11 | Outpatient (CLI) | payer OTHER | LOC: M RAD 12:51 | PROVIDERS: ATTEND Family Medicine | DX: F17.210 Nicotine dependence, cigarettes, uncomplicated (principal); Z53.9 Procedure and treatment not carried out, unspecified reason ==

== ENCOUNTER → 2023-09-19 | Outpatient (CLI) | payer OTHER ==
[2023-09-19 11:52] LABS: BASO # 0.1 10^3/uL (0.0-0.2); BASO % 1.1 % (0.0-1.0); EOS # 0.1 10^3/uL (0.0-0.5); EOS % 1.3 % (0.0-3.0); HEMATOCRIT 45.9 % (36.0-47.0); HEMOGLOBIN 15.1 g/dl (12.0-15.5); LYMPH # 1.5 10^3/uL (1.5-5.0); LYMPH % 28.1 % (24.0-44.0); MEAN CORPUSCULAR HEMOGLOBIN 30.7 pg (27.0-33.0); MEAN CORPUSCULAR HGB CONC 32.9 g/dl (32.0-36.5); MEAN CORPUSCULAR VOLUME 93.3 fl (80.0-96.0); MONO # 0.6 10^3/uL (0.0-0.8); NEUTROPHILS # 3.3 10^3/uL (1.5-8.5); NEUTROPHILS % 59.1 % (36.0-66.0); PLATELET COUNT, AUTOMATED 347 10^3/uL (150-450); RED BLOOD COUNT 4.92 10^6/uL (4.00-5.40); WHITE BLOOD COUNT 5.5 10^3/uL (4.0-10.0)
[2023-09-19 12:03] LABS: HEMOGLOBIN A1c 5.9 % (4.0-6.0)
[2023-09-19 12:16] LABS: ALBUMIN 3.7 G/DL (3.2-5.2); ALKALINE PHOSPHATASE 151 U/L (46-116); ALT/SGPT 60 U/L (7.0-40); AST/SGOT 22 U/L (<34); BLOOD UREA NITROGEN 10 MG/DL (9-23); CALCIUM LEVEL 9.1 MG/DL (8.5-10.1); CARBON DIOXIDE LEVEL 30 MMOL/L (20-31); CHLORIDE LEVEL 108 MMOL/L (98-107); CHOLESTEROL LEVEL 204 MG/DL (<200); CHOLESTEROL RISK RATIO 4.14 (<5); CREATININE FOR GFR 0.87 MG/DL (0.55-1.30); GLOMERULAR FILTRATION RATE > 60.0 (>51); GLUCOSE, FASTING 92 MG/DL (60-100); HDL CHOLESTEROL 49.2 MG/DL (>40); LDL CHOLESTEROL 113.6 MG/DL (<100); NON-HDL-C 154.8 MG/DL; POTASSIUM SERUM 4.3 MMOL/L (3.5-5.1); SODIUM LEVEL 140 MMOL/L (136-145); TOTAL PROTEIN 6.5 G/DL (5.7-8.2); TRIGLYCERIDES LEVEL 206 MG/DL (<150)
[2023-09-19 12:18] LABS: TOTAL 25(OH) VITAMIN D 46.2 NG/ML (20.0-100.0)
== END ==
LOC: M PLALAB 08:17
PROVIDERS: ATTEND Student in an Organized Health Care Education/Training Program
DX: E78.2 Mixed hyperlipidemia (principal)

== ENCOUNTER → 2024-02-18 | Outpatient (REF) | payer OTHER ==
[~2024-02-18] MED LIST changes: +CALC250T PO; +CVS1CHW13 PO; +CYAN500T20 PO; +TIZA10TA PO
== END ==
LOC: M SFHCPLAZ 10:45
PROVIDERS: ATTEND Student in an Organized Health Care Education/Training Program
DX: R73.03 Prediabetes (principal); R79.89 Other specified abnormal findings of blood chemistry

== ENCOUNTER → 2024-03-17 | Outpatient (CLI) | payer OTHER ==
[~2024-03-17] MED LIST changes: +ISOVUE-370 76% 100ML VIAL As Ordered ONE
== END ==
LOC: M RAD 07:54
PROVIDERS: ATTEND Student in an Organized Health Care Education/Training Program
DX: M46.1 Sacroiliitis, not elsewhere classified (principal); N85.00 Endometrial hyperplasia, unspecified
CPT/HCPCS: 72193; Q9967

== ENCOUNTER → 2024-03-18 | Outpatient (CLI) | payer OTHER ==
[~2024-03-18] MED LIST changes: -ISOVUE-370 76% 100ML VIAL As Ordered ONE
[2024-03-18 13:59] LABS: HEMOGLOBIN A1c 5.4 % (4.0-6.0)
[2024-03-18 14:14] LABS: ALBUMIN 3.8 G/DL (3.2-5.2); ALKALINE PHOSPHATASE 147 U/L (46-116); ALT/SGPT 30 U/L (7.0-40); AST/SGOT 21 U/L (<34); BILIRUBIN,TOTAL 0.8 MG/DL (0.3-1.2); BLOOD UREA NITROGEN 12 MG/DL (9-23); CALCIUM LEVEL 9.4 MG/DL (8.5-10.1); CARBON DIOXIDE LEVEL 27 MMOL/L (20-31); CHLORIDE LEVEL 107 MMOL/L (98-107); CREATININE FOR GFR 0.83 MG/DL (0.55-1.30); GLOMERULAR FILTRATION RATE > 60.0 (>51); GLUCOSE, FASTING 98 MG/DL (60-100); POTASSIUM SERUM 4.3 MMOL/L (3.5-5.1); SODIUM LEVEL 138 MMOL/L (136-145); TOTAL PROTEIN 6.5 G/DL (5.7-8.2)
== END ==
LOC: M PLALAB 10:00
PROVIDERS: ATTEND Student in an Organized Health Care Education/Training Program
DX: R73.03 Prediabetes (principal); R79.89 Other specified abnormal findings of blood chemistry

== ENCOUNTER → 2024-04-04 | Outpatient (REF) | payer OTHER | LOC: M SFHCWAGY 15:06 | PROVIDERS: ATTEND Obstetrics & Gynecology | DX: N93.9 Abnormal uterine and vaginal bleeding, unspecified (principal) ==

== ENCOUNTER → 2024-04-04 | Outpatient (CLI) | payer OTHER | LOC: M WHC 11:58 | PROVIDERS: ATTEND Obstetrics & Gynecology | DX: N93.9 Abnormal uterine and vaginal bleeding, unspecified (principal) ==

== ENCOUNTER → 2024-04-15 | Outpatient (CLI) | payer OTHER | LOC: M RAD 06:33 | PROVIDERS: ATTEND Student in an Organized Health Care Education/Training Program | DX: F17.210 Nicotine dependence, cigarettes, uncomplicated (principal) ==

== ENCOUNTER 2024-05-16 10:53 | Day surgery (SDC) | payer OTHER ==
[~2024-05-16] VITALS: Ht 160 cm; Wt 97.5 kg
[~2024-05-16 10:53] MED LIST changes: +METF850T4 PO; -VITA500C19 PO; +VITA500C22 PO
[2024-05-16] MEDS ORDERED: LR 1,000 ML IV SCH (11:00)
[2024-05-16 11:23] LABS: BASO % 0.8 % (0.0-1.0); EOS # 0.1 10^3/uL (0.0-0.5); EOS % 1.2 % (0.0-3.0); HEMATOCRIT 41.4 % (36.0-47.0); LYMPH # 1.4 10^3/uL (1.5-5.0); LYMPH % 28.8 % (24.0-44.0); MEAN CORPUSCULAR HEMOGLOBIN 31.3 pg (27.0-33.0); MEAN CORPUSCULAR HGB CONC 33.8 g/dl (32.0-36.5); MEAN CORPUSCULAR VOLUME 92.6 fl (80.0-96.0); MONO # 0.4 10^3/uL (0.0-0.8); MONO % 9.1 % (2.0-8.0); NEUTROPHILS # 2.9 10^3/uL (1.5-8.5); NEUTROPHILS % 59.9 % (36.0-66.0); PLATELET COUNT, AUTOMATED 324 10^3/uL (150-450); RED BLOOD COUNT 4.47 10^6/uL (4.00-5.40); WHITE BLOOD COUNT 4.8 10^3/uL (4.0-10.0)
[2024-05-16] MEDS ORDERED: fentaNYL 100 MCG/2 ML INJECTION As Ordered ONE (12:52)
[2024-05-16] MEDS ORDERED: MIDAZOLAM INJ 2MG/2ML VIAL As Ordered ONE (12:52)
[2024-05-16] MEDS ORDERED: propofoL 200 MG/20 ML VIAL As Ordered ONE (12:53)
[2024-05-16] MEDS ORDERED: ONDANSETRON 4MG 2ML VIAL As Ordered ONE (12:53)
[2024-05-16] MEDS ORDERED: LIDOCAINE 2% 100MG/5ML SDV (FOR ANES.) As Ordered ONE (12:53)
[2024-05-16] MEDS ORDERED: KETOROLAC 60MG 2ML VIAL As Ordered ONE (12:53)
[2024-05-16] MEDS: LIDOCAINE 1% MDV 20ML VIAL As Ordered ONE (14:35)
[2024-05-16] MEDS: SILVER NITRATE APPLICATOR (1 = QTY 10) As Ordered ONE (15:07)
[2024-05-16] MEDS ORDERED: fentaNYL 100 MCG/2 ML INJECTION IV PRN (15:20)
[2024-05-16] MEDS ORDERED: MORPHINE 2 MG/ML 1ML VIAL IV PRN (15:20)
[2024-05-16] MEDS ORDERED: ONDANSETRON 4MG 2ML VIAL IV PRN (15:20)
[2024-05-16] MEDS ORDERED: oxyCODONE 5MG TAB PO PRN (15:20)
[2024-05-16 16:00] VITALS: BP 142/76; TEMP 98.1; O2SAT 97
== END 2024-05-16 16:18 | disposition home or self-care (01) ==
LOC: M SDC 10:53
PROVIDERS: ATTEND Obstetrics & Gynecology
DX: D25.9 Leiomyoma of uterus, unspecified (principal); N80.03 Adenomyosis of the uterus; N95.0 Postmenopausal bleeding; E11.9 Type 2 diabetes mellitus without complications; G47.9 Sleep disorder, unspecified; Z88.1 Allergy status to other antibiotic agents; Z79.899 Other long term (current) drug therapy
CPT/HCPCS: 36415; 58558; 81025; 85025; 86850; 86900; 86901; 88305; J1100; J1885; J2250; J2405; J3010

== ENCOUNTER → 2024-09-09 | Outpatient (CLI) | payer OTHER ==
[~2024-09-09] MED LIST changes: +COLA100C5 PO; +VENL37TA PO; +VITA200031 PO
[2024-09-09 10:51] LABS: BASO # 0.1 10^3/uL (0.0-0.2); EOS # 0.1 10^3/uL (0.0-0.5); EOS % 1.7 % (0.0-3.0); HEMATOCRIT 44.2 % (36.0-47.0); HEMOGLOBIN 14.7 g/dl (12.0-15.5); LYMPH # 1.7 10^3/uL (1.5-5.0); LYMPH % 29.2 % (24.0-44.0); MEAN CORPUSCULAR HEMOGLOBIN 31.2 pg (27.0-33.0); MEAN CORPUSCULAR HGB CONC 33.3 g/dl (32.0-36.5); MEAN CORPUSCULAR VOLUME 93.8 fl (80.0-96.0); MONO # 0.6 10^3/uL (0.0-0.8); MONO % 9.9 % (2.0-8.0); NEUTROPHILS # 3.4 10^3/uL (1.5-8.5); NEUTROPHILS % 57.9 % (36.0-66.0); PLATELET COUNT, AUTOMATED 376 10^3/uL (150-450); RED BLOOD COUNT 4.71 10^6/uL (4.00-5.40); WHITE BLOOD COUNT 5.9 10^3/uL (4.0-10.0)
[2024-09-09 11:04] LABS: HEMOGLOBIN A1c 5.6 % (4.0-6.0)
[2024-09-09 11:23] LABS: ALBUMIN 3.7 G/DL (3.2-5.2); ALKALINE PHOSPHATASE 142 U/L (35-104); ALT/SGPT 28 U/L (7.0-40); AST/SGOT 26 U/L (<34); BLOOD UREA NITROGEN 14 MG/DL (9-23); CALCIUM LEVEL 9.4 MG/DL (8.5-10.1); CARBON DIOXIDE LEVEL 28 MMOL/L (20-31); CHLORIDE LEVEL 107 MMOL/L (98-107); CHOLESTEROL LEVEL 244 MG/DL (<200); CHOLESTEROL RISK RATIO 4.08 (<5); CREATININE FOR GFR 0.92 MG/DL (0.55-1.30); GLOMERULAR FILTRATION RATE > 60.0 (>51); GLUCOSE, FASTING 112 MG/DL (60-100); HDL CHOLESTEROL 59.8 MG/DL (>40); LDL CHOLESTEROL 152.4 MG/DL (<100); NON-HDL-C 184.2 MG/DL; POTASSIUM SERUM 4.2 MMOL/L (3.5-5.1); SODIUM LEVEL 144 MMOL/L (136-145); TOTAL PROTEIN 6.8 G/DL (5.7-8.2); TRIGLYCERIDES LEVEL 159 MG/DL (<150)
[2024-09-09 11:43] LABS: MAU/CREAT RATIO 4.1 MCG/MG (0.0-30.0)
== END ==
LOC: M PLALAB 07:45
PROVIDERS: ATTEND Registered Nurse
DX: E11.69 Type 2 diabetes mellitus with other specified complication (principal); E78.2 Mixed hyperlipidemia; Z00.00 Encounter for general adult medical examination without abnormal findings

== ENCOUNTER 2024-09-10 09:17 | Day surgery (SDC) | payer OTHER ==
[~2024-09-10] VITALS: Ht 160 cm; Wt 93.2 kg
[2024-09-10] MEDS ORDERED: propofoL 200 MG/20 ML VIAL As Ordered ONE (11:54)
[2024-09-10 12:26] VITALS: TEMP 97.8
[2024-09-10] MEDS ORDERED: LIDOCAINE 2% 100MG/5ML SDV (FOR ANES.) As Ordered ONE (12:29)
[2024-09-10 12:45] VITALS: BP 156/78; O2SAT 96
== END 2024-09-10 12:59 | disposition home or self-care (01) ==
LOC: M OPP 09:17
PROVIDERS: ATTEND Surgery
DX: Z12.11 Encounter for screening for malignant neoplasm of colon (principal); K63.5 Polyp of colon; G47.30 Sleep apnea, unspecified; Z88.1 Allergy status to other antibiotic agents; Z79.84 Long term (current) use of oral hypoglycemic drugs; Z79.899 Other long term (current) drug therapy; K76.0 Fatty (change of) liver, not elsewhere classified; Z98.84 Bariatric surgery status; Z87.891 Personal history of nicotine dependence